=== PATIENT | male | born 1990 | race Caucasian/White ===

== ENCOUNTER 2022-02-09 19:35 | Inpatient (IN) ==
[2022-02-09 20:16] LABS: Basophils % 0.4 %; Eosinophils # 0.1 K/mcL (0.0-0.6); Eosinophils % 2.8 %; Hematocrit 37.3 % (37.5-50.1); Hemoglobin 12.5 g/dL (12.9-16.9); Immature Granulocytes % 0.2 % (0-4); Lymphocytes # 2.1 K/mcL (0.6-4.6); Lymphocytes % 43.9 %; Mean Corpuscular HGB Conc 33.5 g/dL (31.6-35.5); Mean Corpuscular Hemoglobin 28.5 pg (28.0-33.3); Mean Corpuscular Volume 85.2 fL (83.0-100.0); Mean Platelet Volume 11.4 fL (9.4-12.4); Monocytes # 0.4 K/mcL (0.0-1.3); Monocytes % 7.7 %; Neutrophils # 2.1 K/mcL (1.6-8.9); Platelet Count 167 K/mcL (140-400); Red Blood Count 4.38 M/mcL (4.19-5.50); Red Cell Distribution Width 12.8 % (11.5-14.5); White Blood Count 4.7 K/mcL (4.3-11.1)
[2022-02-09 20:22] LABS: Estimated Average Glucose 100 mg/dl; Hemoglobin A1C 5.1 %
[2022-02-09 20:25] LABS: Bilirubin,Urine Small (Negative); Blood,Urine Negative (Negative); Budding Yeast,Urine Few per hpf (None Seen); Clarity,Urine Clear (Clear); Color,Urine Yellow (Yellow); Glucose,Urine (UA) Normal (Normal); Hyaline Casts,Urine Many per lpf (None Seen); Ketones,Urine Negative (Negative); Leukocyte Esterase,Urine Negative (Negative); Mucus,Urine Many per lpf (None-Few); Nitrite,Urine Negative (Negative); Protein,Urine 50 mg/dL (Neg-Trace); RBC,Urine 15-30 per hpf (0-3); Specific Gravity,Urine > 1.030 (1.010-1.025); Squamous Epithelial Cell,Urine Few per hpf (None-Few)
[2022-02-09 20:38] LABS: Acetaminophen < 10 mcg/mL (10-20); BUN/Creatinine Ratio 19 (6-26); Blood Urea Nitrogen 16 mg/dL (6-20); Calcium 9.3 mg/dL (8.6-10.3); Carbon Dioxide 29 mEq/L (23-29); Chloride 101 mEq/L (98-107); Chol/HDL Ratio 2.7 (0-4.9); Cholesterol 132 mg/dL (< 200); Ethanol < 10 mg/dL (Less than 10); Glucose 95 mg/dL (70-105); HDL Cholesterol 49 mg/dL (40-59); LDL Cholesterol,Calculated 74 mg/dL (< 100); Osmolality,Calculated 283 (280-300); Potassium 3.3 mEq/L (3.5-5.1); Salicylate < 2.5 mg/dL (15.0-30.0); Sodium 136 mEq/L (136-145); Triglycerides 43 mg/dL (< 150); eGFR For African Americans > 60 (> 60); eGFR For Non-African Americans > 60 (> 60)
[2022-02-09 20:43] LABS: Amphetamine Screen,Urine Positive ng/mL (Cutoff=1000); Barbiturate Screen,Urine Negative ng/mL (Cutoff=200); Benzodiazepines Screen,Urine Negative ng/mL (Cutoff=200); Cannabinoid Screen,Urine Negative ng/mL (Cutoff = 50); Cocaine Screen,Urine Negative ng/mL (Cutoff= 300); Opiate Screen,Urine Negative ng/mL (Cutoff=300); Phencyclidine Screen,Urine Negative ng/mL (Cutoff=25)
[2022-02-09] MEDS ORDERED: Cefdinir 300 MG CAPSULE PO STA (20:50)
[2022-02-09 23:21] LABS: Influenza A PCR Negative (Negative); Influenza B PCR Negative (Negative); Resp. Syncytial Virus PCR Negative (Negative)
[2022-02-09 23:25] LABS: SARS-CoV-2 by PCR (In House) Negative (Negative)
[2022-02-09] MEDS ORDERED: *HR* LORazepam 2 MG/ML VIAL IM PRN (23:38)
[2022-02-09] MEDS ORDERED: *HR* LORazepam 1 MG TABLET PO PRN (23:38)
[2022-02-09] MEDS ORDERED: Haloperidol Lactate 5 MG/ML VIAL IM PRN (23:38)
[2022-02-09] MEDS ORDERED: haloperidoL 5 MG TABLET PO PRN (23:38)
[2022-02-10] MEDS: Acetaminophen 325 MG TABLET PO PRN ×2 (00:17→20:51)
[2022-02-10] MEDS: traZODone 50 MG TABLET PO PRN (00:18)
[2022-02-10] MEDS: hydrOXYzine pamoate 25 MG CAPSULE PO PRN (00:18)
[2022-02-10] MEDS: Nicotine 21 MG PATCH.TD24 TD SCH (12:45)
[2022-02-10] MEDS: Cefdinir 300 MG CAPSULE PO SCH ×2 (12:45→20:52)
[2022-02-11] MEDS: Nicotine 21 MG PATCH.TD24 TD SCH (10:02)
[2022-02-11] MEDS: Cefdinir 300 MG CAPSULE PO SCH ×2 (10:03→21:15)
[2022-02-11] MEDS: Ibuprofen 800 MG TABLET PO PRN ×2 (10:03→21:18)
[2022-02-11] MEDS: hydrOXYzine pamoate 25 MG CAPSULE PO PRN (21:18)
[2022-02-11] MEDS: traZODone 50 MG TABLET PO PRN (21:18)
[2022-02-12] MEDS: Cefdinir 300 MG CAPSULE PO SCH (10:18)
[2022-02-12] MEDS: Nicotine 21 MG PATCH.TD24 TD SCH (10:20)
[2022-02-12 10:50] VITALS: BP 102/70; PULSE 77; TEMP 97.7; O2SAT 100
== END 2022-02-12 15:45 | disposition home or self-care (01) | DRG 751 ==
LOC: EMEROOARM 19:35 → 1ANU 23:41
PROVIDERS: ADMIT Psychiatry & Neurology Psychiatry; ATTEND Psychiatry & Neurology Psychiatry